=== PATIENT | female | born 1965 | race Caucasian/White ===

== ENCOUNTER 2024-08-11 17:27 | Observation (INO) ==
[2024-08-11 18:13] LABS: ABS Basophils 0.1 10^3/uL (0.0-0.1); ABS Eosinophils 0.1 10^3/uL (0.0-0.5); ABS Lymphocytes 1.8 10^3/uL (1.0-4.8); ABS Monocytes 1.1 10^3/uL (0.0-0.9); ABS Neutrophils 9.9 10^3/uL (1.5-7.6); ABS Nucleated RBC 0.01 10^3/ul; Hematocrit 41.2 % (35-45); Hemoglobin 13.9 g/dL (11.5-14.3); Lymphocyte % 13.5 %; Mean Corpuscular Hemoglobin 29.4 pg (27-33); Mean Corpuscular Hgb Conc 33.8 g/dL (31-36); Mean Platelet Volume 8.1 fL (7.5-11.2); Nucleated Red Blood Cells % 0.1 %/100WBC (0.0-0.8); Platelet Count 241 10^3/uL (150-450); Red Blood Count 4.74 10^6/uL (3.63-4.92)
[2024-08-11 18:16] LABS: INR 1.19 (0.85-1.14)
[2024-08-11] MEDS: Cefepime 2 GM in Dextrose 2 GM/50 ML BAG IV ONE (18:54)
[2024-08-11] MEDS: Azithromycin 500 mg/250 ml NS 500 MG/250 ML BAG IVPB ONE (18:54)
[2024-08-11 19:08] LABS: Albumin 4.1 g/dL (3.5-5.7); Albumin/Globulin Ratio 1.6 (1-3); Calcium 9.7 mg/dL (8.6-10.3); Creatinine, Serum 0.94 mg/dL (0.51-0.95); Globulin 2.5 g/dL (2-4); Potassium 3.6 mmol/L (3.5-5.0); Total Bilirubin 1.1 mg/dL (0.2-1.0); Total Protein 6.6 g/dL (6.4-8.9); eGFR CKD-EPI 69.9 (>60)
[2024-08-11] MEDS: Lactated Ringers SEPSIS* BAG 2,720 ML IV ONE (19:19)
[2024-08-11 19:49] LABS: C Reactive Protein 205.94 mg/L (<8.01)
[2024-08-11 20:40] LABS: High Sensitivity Troponin 1 Hr 6 pg/mL (<15)
[2024-08-11] MEDS: Iodixanol 320 (CONTRAST) 100 ML SDV IV ONE (20:45)
[2024-08-11] MEDS: Iohexol 350 (CONTRAST) 500 ML MDV IV ONE (20:46)
[2024-08-11 21:20] LABS: Urine Appearance Clear; Urine Bilirubin Negative (Negative); Urine Blood 1+ (Negative); Urine Color Light-Yellow; Urine Glucose Negative (Negative); Urine Ketones Negative (Negative); Urine Nitrite Negative (Negative); Urine Protein 1+ (>=30 mg/dL) (Negative); Urine Specific Gravity 1.025 (1.002-1.030); Urine Urobilinogen Negative (Negative); Urine pH 6.5 (5.0-8.0)
[2024-08-11 21:22] LABS: Urine Bacteria Absent /HPF (Absent); Urine Red Blood Cell Trace(0-2/hpf) /HPF (0-Trace); Urine Squamous Epithelial Cell Present /HPF (Absent); Urine White Blood Cell Trace(0-5/hpf) /HPF (0-Trace)
[2024-08-11] MEDS: Albuterol/Ipratropium NEB.SOL (2.5/0.5 MG) 3 ML NEB.SOLN INH PRN (22:22)
[2024-08-12] MEDS ORDERED: Albuterol/Ipratropium NEB.SOL (2.5/0.5 MG) 3 ML NEB.SOLN INH PRN ×2 (02:31→14:18)
[2024-08-12] MEDS: Lactated Ringers 1000 ml BAG 1,000 ML IV SCH (03:23)
[2024-08-12] MEDS ORDERED: Nicotine GUM 2MG FRUIT FLAVOR PO PRN (05:03)
[2024-08-12] MEDS: Enoxaparin 40 MG/0.4 ML SYR SUBCUT SCH (05:37)
[2024-08-12] MEDS: cefTRIAXone 1 gm/50 mL D5W 1 GM/50 ML BAG IV SCH (05:37)
[2024-08-12] MEDS: Nicotine PATCH 7 MG/24 HR PATCH TRANSDERM SCH (05:37)
[2024-08-12] MEDS: Albuterol/Ipratropium NEB.SOL (2.5/0.5 MG) 3 ML NEB.SOLN INH SCH (05:51)
[2024-08-12] MEDS ORDERED: cefTRIAXone 1 gm/50 mL D5W 1 GM/50 ML BAG IV SCH (06:00)
[2024-08-12 06:57] LABS: ABS Eosinophils 0.2 10^3/uL (0.0-0.5); ABS Lymphocytes 1.6 10^3/uL (1.0-4.8); ABS Monocytes 0.8 10^3/uL (0.0-0.9); ABS Neutrophils 5.1 10^3/uL (1.5-7.6); Eosinophil % 2.4 %; Hematocrit 34.9 % (35-45); Hemoglobin 11.8 g/dL (11.5-14.3); Lymphocyte % 20.8 %; Mean Corpuscular Hemoglobin 29.3 pg (27-33); Mean Corpuscular Volume 86.3 fL (80-97); Mean Platelet Volume 8.1 fL (7.5-11.2); Nucleated Red Blood Cells % 0.1 %/100WBC (0.0-0.8); Platelet Count 215 10^3/uL (150-450); Red Blood Count 4.04 10^6/uL (3.63-4.92); Red Cell Distribution Width 14.8 % (12-17); White Blood Count 7.7 10^3/uL (3.8-11.8)
[2024-08-12 07:40] LABS: Calcium 8.4 mg/dL (8.6-10.3); Creatinine, Serum 0.9 mg/dL (0.51-0.95); Magnesium 1.3 mg/dL (1.9-2.7); Potassium 3.5 mmol/L (3.5-5.0); eGFR CKD-EPI 73.6 (>60)
[2024-08-12] MEDS: BUDESONIDE 3 MG PO SCH (11:01)
[2024-08-12] MEDS: CMCS:Budesonide 3 mg CAP (NF) PO SCH (12:16)
[2024-08-12] MEDS: Magnesium Sulfate 2 gm BAG 2 GM/50 ML BAG IVPB ONE (15:11)
[2024-08-12] MEDS: Magnesium Sulfate IV 1GM/100ML 1 GM/100 ML BAG IV ONE (16:44)
[2024-08-12] MEDS: Azithromycin 500 mg/250 ml NS 500 MG/250 ML BAG IVPB SCH (17:40)
[2024-08-12] MEDS ORDERED: Azithromycin 500 mg/250 ml NS 500 MG/250 ML BAG IVPB SCH (18:00)
[2024-08-12] MEDS: Albuterol HFA INHALER 8 gm MDI INH SCH (20:20)
[2024-08-12] MEDS: Tiotropium Brom/Olodaterol MDI (ACUTE) INH SCH (20:20)
[2024-08-13 07:00] LABS: ABS Eosinophils 0.1 10^3/uL (0.0-0.5); ABS Neutrophils 7.8 10^3/uL (1.5-7.6); Eosinophil % 1.1 %; Hematocrit 34.4 % (35-45); Hemoglobin 11.6 g/dL (11.5-14.3); Lymphocyte % 18.4 %; Mean Corpuscular Hemoglobin 29.4 pg (27-33); Mean Corpuscular Hgb Conc 33.7 g/dL (31-36); Mean Corpuscular Volume 87.3 fL (80-97); Mean Platelet Volume 8.1 fL (7.5-11.2); Platelet Count 261 10^3/uL (150-450); Red Blood Count 3.94 10^6/uL (3.63-4.92); Red Cell Distribution Width 14.9 % (12-17)
[2024-08-13 07:13] LABS: Calcium 8.5 mg/dL (8.6-10.3); Creatinine, Serum 0.82 mg/dL (0.51-0.95); Magnesium 1.9 mg/dL (1.9-2.7); Potassium 3.4 mmol/L (3.5-5.0); eGFR CKD-EPI 82.3 (>60)
[2024-08-13] MEDS: Potassium Chloride LIQUID 20 MEQ/15 ML LIQUID PO ONE (10:10)
[2024-08-13] MEDS: Fluticasone NASAL SPRAY 50MCG 16 gm SPRAY BTL BOTH NARES SCH (10:11)
[2024-08-13 14:05] VITALS: BP 113/68
== END 2024-08-13 15:30 | disposition home or self-care (01) ==
LOC: EDHOLD 17:27 → ED 17:27 → SUATTDRO 23:24 → MED 08-12 00:43
PROVIDERS: ADMIT Internal Medicine; ATTEND Internal Medicine